=== PATIENT | male | born 1990 | race Caucasian/White ===

== ENCOUNTER 2019-08-04 14:55 | Emergency (ER) | payer SELFPAY ==
[2019-08-04] MEDS ORDERED: 0.9 % SODIUM CHLORIDE 1,000 ML IV ONE (14:59)
--- NOTE | 2019-08-04 15:08 | ED Physician Documentation ---
General Adult - HISTORIAN Historian: patient - HPI Stated Complaint: c/o seizure, fit for confinement Chief Complaint: General Adult Onset: hours Timing: better Severity: moderate Further Comments: yes (Pt is a 28 yo male brought to ER by EMS with c/o seizure. Pt appeared to be shaking after being served an arrest warrant by law enforcement. Pt did not appear post-ictal when EMT's arrived shortly after episode. Pt has no seizure hx. Denies other PMHx. Pt appears anxious on presentation and was tachycardic.) - ROS CONST: other (anxious) EYES/ENT: none CVS/RESP: other (rapid heart rate) GI/: none MS/SKIN/LYMPH: none NEURO/PSYCH: anxiety - PAST HX Past History: other (hernia repair) Allergies/Adverse Reactions: Allergies Allergy/AdvReac Type Severity Reaction Status Date / Time No Known Allergies Allergy Verified 08/04/19 15:13 Home Medications: Ambulatory Orders Medication Instructions Recorded NK 08/04/19 - SOCIAL HX Smoking History: cigarettes Drug Use: heroin - FAMILY HX Family History: No - REVIEWED ASSESSMENTS Nursing Assessment Reviewed: Yes Vitals Reviewed: Yes Progress - Progress Progress: NS 1 L IVF improved - EKG/XRAY/CT EKG: rhythm (sinus tachycardia, ZU=110.) ED Results Lab/Radiology - Orders Orders: ED Orders Category Date Time Status Place IV Lock 1T Care 08/04/19 14:59 Active CBC/PLATELET/DIFF Stat Lab 08/04/19 14:59 Ordered CMP Stat Lab 08/04/19 14:59 Ordered CREATINE KINASE Stat Lab 08/04/19 14:59 Ordered TROPONIN I Stat Lab 08/04/19 14:59 Ordered 0.9 % Sodium Chloride [Normal Saline] 1,000 ml Med 08/04/19 14:59 Active IV Q1H EKG WITH COMPARISON Stat Ther 08/04/19 14:59 Ordered General Adult Physical Exam - PHYSICAL EXAM GENERAL APPEARANCE: anxious EENT: eye inspection normal, pharynx normal NECK: normal inspection, supple RESPIRATORY: no resp distress, chest non-tender, breath sounds normal CVS: reg rate & rhythm, other (tachycardia) ABDOMEN: soft, no organomegaly, normal bowel sounds BACK: normal inspection SKIN: warm/dry, normal color EXTREMITIES: non-tender, normal range of motion, no evidence of injury NEURO: oriented X3, motor nml, sensation nml Discharge Clincal Impression: fit for confinement eval, anxiety Referrals: Primary Doctor,No [Primary Care Provider] - Condition: Stable Disposition: 01 HOME, SELF-CARE Decision to Admit: NO Decision Time: 16:08
[2019-08-04 15:13] LABS: BASOPHILS % 0.6 % (0.0-1.5); NEUTROPHILS # 7.1 # k/uL (1.4-7.7)
[2019-08-04 15:23] LABS: eGFR (Non-African) > 60
[2019-08-04 16:41] VITALS: BP 113/82
== END 2019-08-04 16:27 | disposition home or self-care (01) ==
LOC: ED 14:55
DX: F41.9 Anxiety disorder, unspecified (principal)
CPT/HCPCS: 80053; 82550; 84484; 85025; 96360; 99282; 99283; J7030; 93005; S1016